=== PATIENT | male | born 1965 | race Caucasian/White ===

== ENCOUNTER → 2016-12-21 | Outpatient (CLI) | payer BC ==
[~2016-12-21] MED LIST: ASMANEX220 MCG INH; CARDIZEM CD240 MG PO; ECOTRIN81 MG PO; GLUCOPHAGE500 MG PO; HYDROCHLOROTHIA25 MG PO; IBUPROFEN800 MG PO; K-DUR TAB 10 M10 MEQ PO; LATANOPROST2.5 ML OP; LIORESAL TAB 1010 MG PO; LOPRESSOR100 MG PO; MIRTAZAPINE45 MG PO; OMEPRAZOLE20 MG PO; PRAVASTATIN SOD40 MG PO; ZESTRIL20 MG PO
[2016-12-21 13:04] LABS: BUN/CREATININE RATIO 13 (0-10)
== END ==
LOC: LAB 12:03
PROVIDERS: Family Medicine
DX: E11.9 Type 2 diabetes mellitus without complications (principal); E78.2 Mixed hyperlipidemia
CPT/HCPCS: 36415; 80053; 80061; 83036; 84443

== ENCOUNTER 2017-03-19 23:59 | Emergency (ER) | payer BC ==
[2017-03-20 02:21] LABS: HEMOGLOBIN 15.1 gm/dl (14.0-17.5); RED BLOOD COUNT 5.15 M/UL (4.20-5.50); WHITE BLOOD COUNT 11.3 K/UL (4.5-11.0)
[2017-03-20 02:43] LABS: BUN/CREATININE RATIO 16 (0-10)
== END 2017-03-20 06:28 | disposition home or self-care (01) ==
LOC: ER1 23:59
PROVIDERS: Student in an Organized Health Care Education/Training Program
DX: R07.9 Chest pain, unspecified (principal); R20.2 Paresthesia of skin; E11.9 Type 2 diabetes mellitus without complications; I10 Essential (primary) hypertension; E78.5 Hyperlipidemia, unspecified; F17.210 Nicotine dependence, cigarettes, uncomplicated; Z88.5 Allergy status to narcotic agent; Z90.49 Acquired absence of other specified parts of digestive tract; Z79.82 Long term (current) use of aspirin; Z79.899 Other long term (current) drug therapy; Z79.84 Long term (current) use of oral hypoglycemic drugs
CPT/HCPCS: 36415; 70450; 71020; 80053; 82550; 82553; 83874; 84484; 85025; 93005; 99285

== ENCOUNTER 2021-04-10 15:22 | Inpatient (IN) | payer OTHER ==
[~2021-04-10] VITALS: Ht 180.3 cm; Wt 206.4 kg
[~2021-04-10 15:22] MED LIST changes: +ACID CONTROL150 MG PO; +ADMELOG100 UNIT/1 SC; +AFRIN15 ML; +ALLERGY RELIEF10 M1 PO; +ANTIVERT 25MG T25 MG PO; +ASPIRIN CHEWABL81 MG PO; +ASPIRIN EC81 MG PO; +AZELASTINE137 MCG/0.; +BACLOFEN20 MG PO; +BASAGLAR K100 UNIT/1 SC; +BASAGLAR K100 UNIT/1 SQ; +BENADRYL 25MG C25 MG PO; +BENADRYL25 MG PO; +CHANTIX1 MG PO; +EUTHYROX25 MCG PO; +FERROUS GLUCON324 M2 PO; +FISH OIL 1,0001 EACH PO; +GLUCOPHAGE XR500 MG PO; -GLUCOPHAGE500 MG PO; +GLUCOTROL 10 MG10 MG PO; +IBU800 MG PO; +IPRAT-ALBUT 0.5-3 ML INH; +LASIX20 MG PO; +LEVEMIR FL100 UNIT/1 SC; +LEVOCETIRIZINE D5 MG PO; -LIORESAL TAB 1010 MG PO; +LISINOPRIL10 MG PO; +LOPRESSOR 25 MG25 MG PO; +LOVAZA1 GM PO; +MAGNESIUM400 M2 PO; +MAGOX 400400 MG PO; +MEN'S ONE DAIL1 EACH PO; +METOPROLOL TART50 MG PO; +MIRAPEX0.25 MG PO; +MUCUS RELIEF400 MG PO; +NEURONTIN800 MG PO; -OMEPRAZOLE20 MG PO; +OMEPRAZOLE40 MG PO; +POTASSIUM GLUCO99 MG PO; +POTASSIUM99 M1 PO; -PRAVASTATIN SOD40 MG PO; +PREDNISONE 20 M20 MG PO; +PREDNISONE 50 M50 MG PO; +PREDNISONE50 MG PO; +SYMBICORT 80-41 INHA INH; +TRAZODONE HCL150 MG PO; +TRAZODONE HCL50 MG PO; +TRELEGY ELLIPT1 EACH INH; +ULTRAM50 MG PO; +VENTOLIN HFA 66.7 GM INH; +VIBRAMYCIN100 MG PO; -ZESTRIL20 MG PO; +[UNRECOGNIZED DRUG - OTHER] PO
[2021-04-10 16:31] LABS: RED BLOOD COUNT 4.63 M/UL (4.20-5.50); WHITE BLOOD COUNT 11.7 K/UL (4.5-11.0)
[2021-04-10 17:00] LABS: BUN/CREATININE RATIO 9 (0-10)
[2021-04-11 04:18] LABS: RED BLOOD COUNT 4.34 M/UL (4.20-5.50); WHITE BLOOD COUNT 11.5 K/UL (4.5-11.0)
[2021-04-11] MEDS ORDERED: LASIX40 MG PO (11:30)
[2021-04-11] MEDS ORDERED: REQUIP3 MG PO (11:31)
[2021-04-11] MEDS ORDERED: TYLENOL EXTRA500 MG PO (11:31)
[2021-04-11] MEDS ORDERED: MOTRIN IB200 MG PO (11:32)
[2021-04-11] MEDS ORDERED: MELATONIN10 M2 PO (11:32)
[2021-04-11] MEDS ORDERED: POTASSIUM CHLO10 MEQ PO (11:33)
[2021-04-11] MEDS ORDERED: PROTONIX40 MG PO (11:33)
[2021-04-11] MEDS ORDERED: HUMULIN R500 UNIT/1 SC ×2 (11:35→11:37)
[2021-04-11] MEDS ORDERED: TRAZODONE HCL150 MG PO (11:37)
[2021-04-11] MEDS ORDERED: ACID REDUCER200 MG PO (11:39)
[2021-04-11] MEDS ORDERED: LIPITOR80 MG PO (11:45)
[2021-04-11] MEDS ORDERED: TRULICITY3 MG/0.5 M SQ (12:58)
[2021-04-11] MEDS ORDERED: NEURONTIN800 MG PO (16:31)
[2021-04-12 05:57] LABS: HEMOGLOBIN 14.3 gm/dl (14.0-17.5); RED BLOOD COUNT 4.41 M/UL (4.20-5.50); WHITE BLOOD COUNT 9.2 K/UL (4.5-11.0)
[2021-04-12 06:20] LABS: BUN/CREATININE RATIO 11 (0-10)
[2021-04-13 03:46] LABS: BUN/CREATININE RATIO 11 (0-10)
[2021-04-14 04:17] LABS: HEMOGLOBIN 12.7 gm/dl (14.0-17.5); RED BLOOD COUNT 4.01 M/UL (4.20-5.50); WHITE BLOOD COUNT 5.7 K/UL (4.5-11.0)
[2021-04-14 04:50] LABS: BUN/CREATININE RATIO 12 (0-10)
[2021-04-15 02:45] LABS: HEMOGLOBIN 13.7 gm/dl (14.0-17.5); RED BLOOD COUNT 3.96 M/UL (4.20-5.50); WHITE BLOOD COUNT 6.6 K/UL (4.5-11.0)
[2021-04-15 03:13] LABS: BUN/CREATININE RATIO 12 (0-10)
--- NOTE | 2021-04-16 01:49 | NUR ---
APPROX. 0030: PT'S ABG WAS REPEATED. ABG RESULTS WERE CRITICAL. SEE RESULTS FOR DETAILS. GERI (RESPIRATORY THERAPIST) NOTIFIED OF ABG RESULTS. ORDERED FOR HER TO INCREASE HIS RATE TO 22 AND DO A REPEAT ABG IN 2 HOURS. PT'S BIPAP RATE WAS INCREASED TO 22. FIO2 WAS CONTINUED AT 45%. PT IS NOT DISPLAYING ANY S/S OF DISTRESS. WILL CONTINUE TO MONITOR.
--- NOTE | 2021-04-16 04:07 | NUR ---
APPROX. 0250: ABG WAS REPEATED. ABG RESULTS WERE CRITICAL. SEE RESULTS FOR DETAILS. GERI (RESPIRATORY THERAPIST) NOTIFIED OF ABG RESULTS. ORDERED TO INCREASE PT'S PRESSURE TO IPAP: 22, EPAP: 8 AND TO REPEAT THE ABG AT 0800. PT'S BIPAP WAS INCREASED TO IPAP: 22, EPAP: 8. FIO2 WAS CONTINUED AT 45%. PT IS NOT DISPLAYING ANY S/S OF DISTRESS. WILL CONTINUE TO MONITOR.
--- NOTE | 2021-04-16 07:49 | NUR ---
RECIEVED CALL FROM TELEMETRY NOTIFYING THIS NURSE THAT PATIENT'S OXYGEN LEVEL WAS 74%. RESPONDED TO PATIENT'S ROOM TO FIND HIM IN THE RESTROOM, ALERT AND VERBAL. NONCOMPLIANT WITH NWB STATUS TO BLE. INSTRUCTED PATIENT TO RETURN TO BED AND REAPPLY OXYGEN, WELL NECESSITY FOR NWB STATUS. PATIENT REFUSES TO COMPLY WITH PHYSICIAN'S ORDER. AT BEDSIDE.
[2021-04-17 05:17] LABS: HEMOGLOBIN 12.9 gm/dl (14.0-17.5); RED BLOOD COUNT 4.27 M/UL (4.20-5.50); WHITE BLOOD COUNT 8.2 K/UL (4.5-11.0)
[2021-04-17 05:33] LABS: BUN/CREATININE RATIO 14 (0-10)
[2021-04-19 03:24] LABS: BUN/CREATININE RATIO 14 (0-10)
--- NOTE | 2021-04-19 16:58 | NUR ---
PATIENTS BLOOD GLUCOSE 416. DR. ROBB NOTIFIED. NEW ORDERS: 15 UNITS HUMALOG ONCE
[2021-04-20 03:50] LABS: BUN/CREATININE RATIO 17 (0-10)
--- NOTE | 2021-04-20 15:59 | NUR ---
PT'S POTASSIUM WAS 3.3 THIS MORNING. PT WAS SUPPLEMENTED WITH 40mEq AND DR. ROBB STATED THAT HIS LEVEL CAN BE RECHECKED IN THE MORNING. WILL CONTINUE TO MONITOR FOR CHANGES.
[2021-04-22 06:14] LABS: HEMOGLOBIN 13.1 gm/dl (14.0-17.5); RED BLOOD COUNT 4.12 M/UL (4.20-5.50); WHITE BLOOD COUNT 6.5 K/UL (4.5-11.0)
[2021-04-22 06:35] LABS: BUN/CREATININE RATIO 14 (0-10)
[2021-04-23 04:22] LABS: HEMOGLOBIN 13.1 gm/dl (14.0-17.5); RED BLOOD COUNT 4.14 M/UL (4.20-5.50); WHITE BLOOD COUNT 6.3 K/UL (4.5-11.0)
[2021-04-23 04:46] LABS: BUN/CREATININE RATIO 15 (0-10)
--- NOTE | 2021-04-23 12:13 | NUR ---
PATIENT REQUESTED WALKING BOOTS CASE MANAGEMENT INSTRUCTED ME TO CALL DR. WALKER FOR THE ORDER, I HAVE CALLED HIS OFFICE SINCE HE IS NOT [employer] TODAY AND ALL THE ORTHO DOCTORS ARE OUT OF THE OFFICE TODAY THE NURSE STATED SHE WOULD CALL TOMORROW AFTER SHE ASKED DR. WALKER IF HE WANTED THE BOOTS ORDERED, CASE MANAGEMENT HAS BEEN NOTIFIED.
[2021-04-24 05:26] LABS: BUN/CREATININE RATIO 16 (0-10)
[2021-04-24] MEDS ORDERED: SENNA LAX8.6 MG PO (15:00)
[2021-04-24] MEDS ORDERED: NOVOLOG MI100 UNIT/1 SC (15:00)
[2021-04-24] MEDS ORDERED: ACETAZOLAMIDE250 MG PO (15:00)
[2021-04-24] MEDS ORDERED: GLUCOPHAGE 850850 MG PO (15:16)
== END 2021-04-24 17:27 | disposition home health service (06) | DRG 871 ==
LOC: ER1 15:22 → CDU 17:42 → MED SURG 4 17:42 → CDU 04-17 15:16 → MED SURG 4 04-17 15:16
PROVIDERS: Emergency Medicine; Internal Medicine; Internal Medicine Infectious Disease; Physician Assistant Medical; ADMIT Internal Medicine
PROC: B24BZZ4 Ultrasonography of Heart with Aorta, Transesophageal (ICD-10-PCS; principal; 2021-04-10)
PROC: 5A09457 Assistance with Respiratory Ventilation, 24-96 Consecutive Hours, Continuous Positive Airway Pressure (ICD-10-PCS; 2021-04-11)
DX: A41.9 Sepsis, unspecified organism (principal); J96.21 Acute and chronic respiratory failure with hypoxia; J96.22 Acute and chronic respiratory failure with hypercapnia; E66.2 Morbid (severe) obesity with alveolar hypoventilation; N30.00 Acute cystitis without hematuria; J98.11 Atelectasis; N17.9 Acute kidney failure, unspecified; E87.3 Alkalosis; Z68.41 Body mass index [BMI] 40.0-44.9, adult; Z20.822 Contact with and (suspected) exposure to COVID-19; W18.30XA Fall on same level, unspecified, initial encounter; E11.65 Type 2 diabetes mellitus with hyperglycemia; S82.851A Displaced trimalleolar fracture of right lower leg, initial encounter for closed fracture; E87.6 Hypokalemia; J44.9 Chronic obstructive pulmonary disease, unspecified; E86.1 Hypovolemia; G89.29 Other chronic pain; E78.5 Hyperlipidemia, unspecified; I10 Essential (primary) hypertension; T50.1X5A Adverse effect of loop [high-ceiling] diuretics, initial encounter; F17.210 Nicotine dependence, cigarettes, uncomplicated; Z88.6 Allergy status to analgesic agent; Z85.3 Personal history of malignant neoplasm of breast; Z85.46 Personal history of malignant neoplasm of prostate; Z85.89 Personal history of malignant neoplasm of other organs and systems; Z90.49 Acquired absence of other specified parts of digestive tract; Z79.82 Long term (current) use of aspirin; Z79.01 Long term (current) use of anticoagulants
CPT/HCPCS: ECHO; 0240U; 36415; 36600; 70450; 71045; 72125; 73610; 73700; 80048; 80053; 80202; 81001; 82550; 82553; 82803; 82962; 83605; 83690; 83735; 83874; 83880; 84132; 84443; 84484; 85025; 85027; 85610; 85730; 86140; 87040; 87081; 87086; 93005; 93306; 94640; 94660; 94664; 94760; 96374; 99285; G0378; J0696; J1120; J1335; J1650; J1940; J2185; J2270; J3370; J7030; J7070; Q9957; U0002

== ENCOUNTER 2021-08-18 13:59 | Inpatient (IN) | payer OTHER ==
[~2021-08-18] VITALS: Ht 180.3 cm; Wt 204.1 kg
[~2021-08-18 13:59] MED LIST changes: +ACETAZOLAMIDE250 MG PO; +ACID REDUCER200 MG PO; +GLUCOPHAGE 850850 MG PO; +HUMULIN R500 UNIT/1 SC; +LASIX40 MG PO; +LIPITOR80 MG PO; +MELATONIN10 M2 PO; +MOTRIN IB200 MG PO; +NOVOLOG MI100 UNIT/1 SC; +POTASSIUM CHLO10 MEQ PO; +PROTONIX40 MG PO; +REQUIP3 MG PO; +SENNA LAX8.6 MG PO; +TRULICITY3 MG/0.5 M SQ; +TYLENOL EXTRA500 MG PO
[2021-08-18 16:35] LABS: HEMOGLOBIN 16.3 gm/dl (14.0-17.5); RED BLOOD COUNT 5.02 M/UL (4.20-5.50); WHITE BLOOD COUNT 11.8 K/UL (4.5-11.0)
[2021-08-18 16:54] LABS: BUN/CREATININE RATIO 10 (0-10)
[2021-08-18] MEDS ORDERED: TRELEGY ELLIPT1 EACH INH ×2 (22:07→22:36)
[2021-08-18] MEDS ORDERED: GLIPIZIDE10 MG PO (22:09)
[2021-08-18] MEDS ORDERED: HUMULIN R U (22:10)
[2021-08-18] MEDS ORDERED: CIMETIDINE200 MG PO (22:10)
[2021-08-18] MEDS ORDERED: LORATADINE10 MG PO (22:12)
[2021-08-18] MEDS ORDERED: ROPINIROLE HCL3 MG PO (22:13)
[2021-08-18] MEDS ORDERED: LEVOCETIRIZINE D5 MG PO (22:15)
[2021-08-18] MEDS ORDERED: FLONASE 0.05% N16 GM (22:17)
[2021-08-18] MEDS ORDERED: FAMOTIDINE40 MG PO (22:31)
[2021-08-18] MEDS ORDERED: FUROSEMIDE20 MG PO (22:32)
[2021-08-18] MEDS ORDERED: EUTHYROX25 MCG PO (22:34)
[2021-08-18] MEDS ORDERED: ACCU-CHEK1 EAC1 MC (22:35)
[2021-08-18] MEDS ORDERED: MUCINEX600 MG PO (22:37)
[2021-08-18] MEDS ORDERED: MAXIMUM DAILY1 EAC1 PO (22:38)
[2021-08-19 07:36] LABS: HEMOGLOBIN 14.5 gm/dl (14.0-17.5); RED BLOOD COUNT 4.73 M/UL (4.20-5.50)
[2021-08-19 07:40] LABS: WHITE BLOOD COUNT 7.8 K/UL (4.5-11.0)
[2021-08-19 09:09] LABS: BUN/CREATININE RATIO 10 (0-10)
[2021-08-20 03:21] LABS: HEMOGLOBIN 14.7 gm/dl (14.0-17.5); RED BLOOD COUNT 4.67 M/UL (4.20-5.50); WHITE BLOOD COUNT 6.9 K/UL (4.5-11.0)
[2021-08-20 03:49] LABS: BUN/CREATININE RATIO 10 (0-10)
[2021-08-20] MEDS ORDERED: HYDROCODON-ACE1 EAC4 PO (17:05)
[2021-08-20] MEDS ORDERED: ENOXAPARIN40 MG/0.4 SC (17:05)
[2021-08-20] MEDS ORDERED: MODAFINIL100 MG PO (17:05)
[2021-08-20] MEDS ORDERED: ACETAZOLAMIDE250 MG PO (17:05)
[2021-08-21 17:08] LABS: ORGANISM ID Not indicated. (.); SPECIMEN SOURCE Urine (.); STREPTOCOCCUS PNEUMONIAE AG Negative (Negative)
[2021-08-22 09:14] LABS: AMPHETAMINES, URINE Negative ng/mL (Cutoff=1000); BARBITURATE Negative ng/mL (Cutoff=200); BENZODIAZEPINES Negative ng/mL (Cutoff=200); CANNABINOIDS Negative ng/mL (Cutoff=20); COCAINE (METABOLITE) Negative ng/mL (Cutoff=300); CREATININE 70.6 mg/dL (20.0-300.0); MEPERIDINE Negative ng/mL (Cutoff=200); METHADONE Negative ng/mL (Cutoff=300); OPIATES Negative ng/mL (Cutoff=300); PHENCYCLIDINE Negative ng/mL (Cutoff=25); PROPOXYPHENE Negative ng/mL (Cutoff=300)
== END 2021-08-20 18:17 | disposition home health service (06) | DRG 91 ==
LOC: ER1 13:59 → CCU 18:17 → CDU 18:17 → CCU 19:47 → PROG CARE 08-19 11:02
PROVIDERS: Internal Medicine; Physician Assistant; ADMIT Internal Medicine
PROC: 5A09457 Assistance with Respiratory Ventilation, 24-96 Consecutive Hours, Continuous Positive Airway Pressure (ICD-10-PCS; principal; 2021-08-18)
DX: G92.8 Other toxic encephalopathy (principal); J96.21 Acute and chronic respiratory failure with hypoxia; J96.22 Acute and chronic respiratory failure with hypercapnia; N17.9 Acute kidney failure, unspecified; E87.3 Alkalosis; E66.2 Morbid (severe) obesity with alveolar hypoventilation; E11.649 Type 2 diabetes mellitus with hypoglycemia without coma; J44.9 Chronic obstructive pulmonary disease, unspecified; I12.9 Hypertensive chronic kidney disease with stage 1 through stage 4 chronic kidney disease, or unspecified chronic kidney disease; N18.30 Chronic kidney disease, stage 3 unspecified; S82.51XA Displaced fracture of medial malleolus of right tibia, initial encounter for closed fracture; Z96.651 Presence of right artificial knee joint; F17.210 Nicotine dependence, cigarettes, uncomplicated; I27.81 Cor pulmonale (chronic); G47.00 Insomnia, unspecified; E03.9 Hypothyroidism, unspecified; G89.29 Other chronic pain; T40.605A Adverse effect of unspecified narcotics, initial encounter; E87.6 Hypokalemia; G25.81 Restless legs syndrome; E11.22 Type 2 diabetes mellitus with diabetic chronic kidney disease; E78.5 Hyperlipidemia, unspecified; Z90.49 Acquired absence of other specified parts of digestive tract; Z98.890 Other specified postprocedural states; Z90.89 Acquired absence of other organs; Z88.5 Allergy status to narcotic agent; Z80.3 Family history of malignant neoplasm of breast; Z85.46 Personal history of malignant neoplasm of prostate
CPT/HCPCS: 36415; 36600; 71045; 73610; 73630; 80053; 80307; 82140; 82150; 82550; 82553; 82607; 82803; 82962; 83036; 83540; 83550; 83605; 83735; 83874; 83880; 84100; 84439; 84443; 84484; 85025; 85027; 85652; 86140; 87040; 87086; 87278; 87899; 93005; 94640; 94660; 94760; 99285; G0480; J1650; J2185; J2310; J3370; J7030; J7050; J7060; U0002

== ENCOUNTER 2021-08-30 15:20 | Inpatient (IN) | payer OTHER ==
[~2021-08-30] VITALS: Ht 180.3 cm; Wt 181.4 kg
[~2021-08-30 15:20] MED LIST changes: +ACCU-CHEK1 EAC1 MC; +CIMETIDINE200 MG PO; +ENOXAPARIN40 MG/0.4 SC; +FAMOTIDINE40 MG PO; +FLONASE 0.05% N16 GM; +FUROSEMIDE40 MG PO; +GLIPIZIDE10 MG PO; +HUMULIN R U SQ; +HYDROCODON-ACE1 EAC4 PO; +LORATADINE10 MG PO; +MAXIMUM DAILY1 EAC1 PO; +MODAFINIL100 MG PO; +MUCINEX600 MG PO; +PROAIR HFA8.5 GM INH; +ROPINIROLE HCL3 MG PO
[2021-08-30 16:47] LABS: HEMOGLOBIN 16.3 gm/dl (14.0-17.5); RED BLOOD COUNT 5.06 M/UL (4.20-5.50); WHITE BLOOD COUNT 5.8 K/UL (4.5-11.0)
[2021-08-30 17:08] LABS: BUN/CREATININE RATIO 10 (0-10)
[2021-08-31 06:52] LABS: HEMOGLOBIN 15.3 gm/dl (14.0-17.5); RED BLOOD COUNT 4.88 M/UL (4.20-5.50); WHITE BLOOD COUNT 4.5 K/UL (4.5-11.0)
[2021-08-31 07:40] LABS: BUN/CREATININE RATIO 9 (0-10)
[2021-08-31] MEDS ORDERED: SENNA LAXATIVE8.6 MG PO (14:24)
[2021-09-01 02:28] LABS: HEMOGLOBIN 15.1 gm/dl (14.0-17.5); RED BLOOD COUNT 4.74 M/UL (4.20-5.50)
[2021-09-01 02:58] LABS: BUN/CREATININE RATIO 17 (0-10)
[2021-09-02 02:44] LABS: HEMOGLOBIN 15.5 gm/dl (14.0-17.5); RED BLOOD COUNT 4.93 M/UL (4.20-5.50)
[2021-09-02 02:46] LABS: WHITE BLOOD COUNT 5.8 K/UL (4.5-11.0)
[2021-09-02 03:12] LABS: BUN/CREATININE RATIO 26 (0-10)
[2021-09-04 08:56] LABS: HEMOGLOBIN 16.7 gm/dl (14.0-17.5); RED BLOOD COUNT 5.32 M/UL (4.20-5.50); WHITE BLOOD COUNT 5.5 K/UL (4.5-11.0)
[2021-09-04 09:16] LABS: BUN/CREATININE RATIO 32 (0-10)
[2021-09-06 11:48] LABS: HEMOGLOBIN 15.9 gm/dl (14.0-17.5); RED BLOOD COUNT 5.02 M/UL (4.20-5.50); WHITE BLOOD COUNT 6.3 K/UL (4.5-11.0)
[2021-09-06 12:12] LABS: BUN/CREATININE RATIO 30 (0-10)
[2021-09-07 09:07] LABS: HEMOGLOBIN 15.9 gm/dl (14.0-17.5); RED BLOOD COUNT 5.21 M/UL (4.20-5.50); WHITE BLOOD COUNT 6.9 K/UL (4.5-11.0)
[2021-09-07 09:21] LABS: BUN/CREATININE RATIO 32 (0-10)
[2021-09-08 09:08] LABS: HEMOGLOBIN 16.8 gm/dl (14.0-17.5); RED BLOOD COUNT 5.25 M/UL (4.20-5.50); WHITE BLOOD COUNT 5.8 K/UL (4.5-11.0)
[2021-09-08 09:20] LABS: BUN/CREATININE RATIO 31 (0-10)
[2021-09-08] MEDS ORDERED: DOXYCYCLINE HY100 M2 PO (13:45)
[2021-09-08] MEDS ORDERED: LANTUS INS100 UTS/M1 SC (13:45)
[2021-09-08] MEDS ORDERED: NOVOLOG FL100 UNIT/1 SC (13:45)
[2021-09-08] MEDS ORDERED: DEXAMETHASONE2 MG PO (13:57)
[2021-09-08] MEDS ORDERED: ELIQUIS 2.5 MG2.5 MG PO (13:57)
== END 2021-09-08 19:20 | disposition home health service (06) | DRG 177 ==
LOC: ER1 15:20 → MED SURG 4 18:32 → CDU 18:32 → PROG CARE 18:32 → MED SURG 4 09-03 23:50 → ZOBSOF 09-08 14:45 → MED SURG 4 09-08 14:45
PROVIDERS: Internal Medicine; Nurse Practitioner; ADMIT Internal Medicine
PROC: 5A09457 Assistance with Respiratory Ventilation, 24-96 Consecutive Hours, Continuous Positive Airway Pressure (ICD-10-PCS; principal; 2021-08-30)
PROC: 3E0333Z Introduction of Anti-inflammatory into Peripheral Vein, Percutaneous Approach (ICD-10-PCS; 2021-08-30)
PROC: XW033E5 Introduction of Remdesivir Anti-infective into Peripheral Vein, Percutaneous Approach, New Technology Group 5 (ICD-10-PCS; 2021-08-30)
DX: U07.1 COVID-19 (principal); J96.21 Acute and chronic respiratory failure with hypoxia; J96.22 Acute and chronic respiratory failure with hypercapnia; J12.82 Pneumonia due to coronavirus disease 2019; G92.8 Other toxic encephalopathy; J44.0 Chronic obstructive pulmonary disease with (acute) lower respiratory infection; E66.2 Morbid (severe) obesity with alveolar hypoventilation; E87.3 Alkalosis; Z68.43 Body mass index [BMI] 50.0-59.9, adult; W01.0XXA Fall on same level from slipping, tripping and stumbling without subsequent striking against object, initial encounter; G47.33 Obstructive sleep apnea (adult) (pediatric); E11.22 Type 2 diabetes mellitus with diabetic chronic kidney disease; N18.30 Chronic kidney disease, stage 3 unspecified; E11.43 Type 2 diabetes mellitus with diabetic autonomic (poly)neuropathy; I12.9 Hypertensive chronic kidney disease with stage 1 through stage 4 chronic kidney disease, or unspecified chronic kidney disease; D69.6 Thrombocytopenia, unspecified; S82.891A Other fracture of right lower leg, initial encounter for closed fracture; E03.9 Hypothyroidism, unspecified; R55 Syncope and collapse; Z83.1 Family history of other infectious and parasitic diseases; Z98.890 Other specified postprocedural states; Z88.8 Allergy status to other drugs, medicaments and biological substances; Z88.6 Allergy status to analgesic agent; Z79.4 Long term (current) use of insulin; Z79.84 Long term (current) use of oral hypoglycemic drugs; Z79.82 Long term (current) use of aspirin
CPT/HCPCS: ECHO; 36415; 36600; 70450; 71045; 72020; 80048; 80053; 81001; 82140; 82550; 82553; 82728; 82803; 82962; 83605; 83690; 83735; 83874; 83880; 84439; 84443; 84484; 85025; 85027; 85379; 85610; 85730; 86140; 87040; 87086; 93005; 93306; 93970; 94640; 94660; 94664; 94760; 96365; 96375; 97116; 97162; 97166; 97530; 99285; J0456; J0696; J1100; J1120; J1335; J1650; J1940; J2310; J2405; J7030; Q9957; U0002

== ENCOUNTER 2021-10-01 20:45 | Emergency (ER) | payer OTHER ==
[~2021-10-01 20:45] MED LIST changes: +DEXAMETHASONE2 MG PO; +DOXYCYCLINE HY100 M2 PO; +ELIQUIS 2.5 MG2.5 MG PO; +LANTUS INS100 UTS/M1 SC; +NOVOLOG FL100 UNIT/1 SC; +SENNA LAXATIVE8.6 MG PO
[2021-10-01 23:28] LABS: HEMOGLOBIN 13.4 gm/dl (14.0-17.5); RED BLOOD COUNT 4.25 M/UL (4.20-5.50); WHITE BLOOD COUNT 4.7 K/UL (4.5-11.0)
[2021-10-02] MEDS ORDERED: CEPHALEXIN500 MG PO (03:01)
[2021-10-02] MEDS ORDERED: BACTRIM 400-801 EACH PO (03:01)
== END 2021-10-02 03:00 | disposition home or self-care (01) ==
LOC: ER1 20:45
PROVIDERS: Family Medicine
DX: E11.649 Type 2 diabetes mellitus with hypoglycemia without coma (principal); E66.01 Morbid (severe) obesity due to excess calories; Z79.4 Long term (current) use of insulin; I10 Essential (primary) hypertension; J44.9 Chronic obstructive pulmonary disease, unspecified; Z79.01 Long term (current) use of anticoagulants; Z87.891 Personal history of nicotine dependence
CPT/HCPCS: 36415; 73590; 73630; 80053; 82962; 83605; 85025; 86140; 96374; 99284

== ENCOUNTER 2021-12-21 15:42 | Inpatient (IN) | payer OTHER ==
[~2021-12-21] VITALS: Ht 180.3 cm; Wt 220.9 kg
[~2021-12-21 15:42] MED LIST changes: +BACTRIM 400-801 EACH PO; +BACTRIM DS TAB1 EACH PO; +CEPHALEXIN500 M1 PO; +CEPHALEXIN500 MG PO; -HUMULIN R U SQ; +K-TAB ER20 MEQ PO; -MELATONIN10 M2 PO
[2021-12-21 16:54] LABS: RED BLOOD COUNT 4.56 M/UL (4.20-5.50); WHITE BLOOD COUNT 8.8 K/UL (4.5-11.0)
[2021-12-21 17:19] LABS: BUN/CREATININE RATIO 8 (0-10)
[2021-12-22 03:05] LABS: HEMOGLOBIN 14.2 gm/dl (14.0-17.5); RED BLOOD COUNT 4.64 M/UL (4.20-5.50); WHITE BLOOD COUNT 9.1 K/UL (4.5-11.0)
[2021-12-22 03:47] LABS: BUN/CREATININE RATIO 8 (0-10)
[2021-12-22] MEDS ORDERED: MELATONIN10 M2 PO (11:32)
[2021-12-22] MEDS ORDERED: TRAZODONE HCL150 MG PO (11:37)
[2021-12-22] MEDS ORDERED: CEPHALEXIN500 MG PO (12:59)
[2021-12-22] MEDS ORDERED: FISH OIL 1,0001 EACH PO (13:07)
[2021-12-22] MEDS ORDERED: TYLENOL325 MG PO (13:09)
[2021-12-22] MEDS ORDERED: MOTRIN IB200 MG PO (13:10)
[2021-12-22] MEDS ORDERED: GUAIFENESIN400 MG PO (13:11)
[2021-12-22] MEDS ORDERED: DOCUSATE SODIU100 MG PO (13:13)
[2021-12-22] MEDS ORDERED: HUMULIN R U-500 SQ ×3 (13:18→22:10)
[2021-12-22] MEDS ORDERED: NICOTINE PATCH1 EACH TD (13:19)
[2021-12-22] MEDS ORDERED: BACLOFEN20 MG PO (13:20)
[2021-12-22] MEDS ORDERED: CIMETIDINE200 MG PO (13:22)
[2021-12-22] MEDS ORDERED: MIRALAX 119 GR119 GM PO (13:24)
[2021-12-22] MEDS ORDERED: ACETAZOLAMIDE250 MG PO (13:25)
[2021-12-22] MEDS ORDERED: LEVOCETIRIZINE D5 MG PO (13:26)
[2021-12-22] MEDS ORDERED: LORATADINE10 MG PO (13:27)
[2021-12-23 02:08] LABS: RED BLOOD COUNT 4.3 M/UL (4.20-5.50); WHITE BLOOD COUNT 7.8 K/UL (4.5-11.0)
[2021-12-23 02:28] LABS: BUN/CREATININE RATIO 11 (0-10)
--- NOTE | 2021-12-23 03:09 | NUR ---
PT CALLED OUT FOR PAIN MEDICATION AGAIN. UPON ENTERING THE ROOM HE IS ASLEEP AND DIDN'T EVEN KNOW I WAS IN THERE. I WOKE HIM UP TO GIVE PAIN MEDICATION. HE STATES, " CAN I HAVE THAT LIQUID DILAUDID INSTEAD? THOSE PILLS DONT HELP MY PAIN." EDUCATED PT ABOUT MEDICATION ORALLY IS TO BE GIVEN FIRST THEN DILAUDID FOR SEVERE BREAKTHRU PAIN PER THE MD ORDERS. ALSO TEACHING DONE ABOUT MEDICATION NEEDS AND USAGE.
[2021-12-24 06:28] LABS: HEMOGLOBIN 14.8 gm/dl (14.0-17.5)
[2021-12-24 06:36] LABS: RED BLOOD COUNT 4.74 M/UL (4.20-5.50)
[2021-12-24 07:11] LABS: BUN/CREATININE RATIO 14 (0-10)
== END 2021-12-24 13:28 | disposition home health service (06) | DRG 193 ==
LOC: ER1 15:42 → MED SURG 4 18:32 → PROG CARE 18:32 → CDU 18:32 → PROG CARE 19:36 → MED SURG 4 12-23 15:49
PROVIDERS: Emergency Medicine; Internal Medicine; ADMIT Internal Medicine
PROC: 5A09357 Assistance with Respiratory Ventilation, Less than 24 Consecutive Hours, Continuous Positive Airway Pressure (ICD-10-PCS; 2021-12-21)
PROC: B24BZZZ Ultrasonography of Heart with Aorta (ICD-10-PCS; principal; 2021-12-22)
PROC: 5A09357 Assistance with Respiratory Ventilation, Less than 24 Consecutive Hours, Continuous Positive Airway Pressure (ICD-10-PCS; 2021-12-23)
DX: J18.9 Pneumonia, unspecified organism (principal); J96.21 Acute and chronic respiratory failure with hypoxia; J96.22 Acute and chronic respiratory failure with hypercapnia; J44.0 Chronic obstructive pulmonary disease with (acute) lower respiratory infection; Z20.822 Contact with and (suspected) exposure to COVID-19; E66.2 Morbid (severe) obesity with alveolar hypoventilation; I13.0 Hypertensive heart and chronic kidney disease with heart failure and stage 1 through stage 4 chronic kidney disease, or unspecified chronic kidney disease; G93.49 Other encephalopathy; Z68.44 Body mass index [BMI] 60.0-69.9, adult; F17.210 Nicotine dependence, cigarettes, uncomplicated; E11.22 Type 2 diabetes mellitus with diabetic chronic kidney disease; E11.42 Type 2 diabetes mellitus with diabetic polyneuropathy; N18.9 Chronic kidney disease, unspecified; I50.9 Heart failure, unspecified; E03.9 Hypothyroidism, unspecified; Z79.01 Long term (current) use of anticoagulants; Z79.82 Long term (current) use of aspirin; Z99.81 Dependence on supplemental oxygen; Z79.4 Long term (current) use of insulin; Z98.890 Other specified postprocedural states; Z88.6 Allergy status to analgesic agent; Z88.5 Allergy status to narcotic agent; Z88.8 Allergy status to other drugs, medicaments and biological substances; Z90.49 Acquired absence of other specified parts of digestive tract; Z71.6 Tobacco abuse counseling
CPT/HCPCS: ECHO; 36415; 36600; 71045; 80053; 81001; 82550; 82553; 82803; 82962; 83036; 83540; 83550; 83605; 83735; 83880; 84100; 84484; 85025; 85027; 85652; 86140; 87040; 87086; 87205; 87278; 93005; 93306; 94640; 94660; 94664; 94760; 96374; 96375; 97110; 97162; 97166; 99285; J0360; J0456; J0696; J1650; J2185; Q9957; U0002

== ENCOUNTER 2022-02-02 09:42 | Inpatient (IN) | payer OTHER ==
[~2022-02-02] VITALS: Ht 180.3 cm; Wt 215.5 kg
[~2022-02-02 09:42] MED LIST changes: +DOCUSATE SODIU100 MG PO; +GUAIFENESIN400 MG PO; +HUMULIN R U-500 SQ; +MELATONIN10 M2 PO; +MIRALAX 119 GR119 GM PO; +NICOTINE PATCH1 EACH TD; +POTASSIUM CHLO10 ME1 PO; -POTASSIUM CHLO10 MEQ PO; +TYLENOL325 MG PO
[2022-02-02 10:57] LABS: HEMOGLOBIN 14.3 gm/dl (14.0-17.5); RED BLOOD COUNT 4.71 M/UL (4.20-5.50); WHITE BLOOD COUNT 7.3 K/UL (4.5-11.0)
[2022-02-02 11:35] LABS: BUN/CREATININE RATIO 11 (0-10)
[2022-02-02] MEDS ORDERED: FERROUS GLUCON324 M1 PO (15:25)
[2022-02-02] MEDS ORDERED: LORATADINE10 MG PO (15:35)
[2022-02-02] MEDS ORDERED: ATORVASTATIN CA80 MG PO (15:35)
[2022-02-02] MEDS ORDERED: CIMETIDINE200 MG PO (15:35)
[2022-02-02] MEDS ORDERED: FUROSEMIDE40 MG PO (15:36)
[2022-02-02] MEDS ORDERED: MUCUS RELIEF D1 EAC1 PO (15:37)
[2022-02-02] MEDS ORDERED: IBU-200200 MG PO (15:37)
[2022-02-03 05:12] LABS: HEMOGLOBIN 14.2 gm/dl (14.0-17.5); RED BLOOD COUNT 4.75 M/UL (4.20-5.50)
[2022-02-03 05:47] LABS: BUN/CREATININE RATIO 14 (0-10)
[2022-02-04 05:14] LABS: HEMOGLOBIN 15.1 gm/dl (14.0-17.5); RED BLOOD COUNT 5.06 M/UL (4.20-5.50); WHITE BLOOD COUNT 6.1 K/UL (4.5-11.0)
[2022-02-04 05:40] LABS: BUN/CREATININE RATIO 21 (0-10)
[2022-02-05 05:40] LABS: RED BLOOD COUNT 5.32 M/UL (4.20-5.50); WHITE BLOOD COUNT 7.1 K/UL (4.5-11.0)
[2022-02-05 07:01] LABS: BUN/CREATININE RATIO 26 (0-10)
[2022-02-06 01:45] LABS: HEMOGLOBIN 14.2 gm/dl (14.0-17.5); RED BLOOD COUNT 4.8 M/UL (4.20-5.50); WHITE BLOOD COUNT 6.3 K/UL (4.5-11.0)
[2022-02-06 02:13] LABS: BUN/CREATININE RATIO 30 (0-10)
[2022-02-07 03:00] LABS: BUN/CREATININE RATIO 30 (0-10)
[2022-02-08 02:18] LABS: BUN/CREATININE RATIO 30 (0-10)
[2022-02-10 01:49] LABS: HEMOGLOBIN 14.6 gm/dl (14.0-17.5); RED BLOOD COUNT 4.92 M/UL (4.20-5.50); WHITE BLOOD COUNT 7.7 K/UL (4.5-11.0)
[2022-02-10 02:21] LABS: BUN/CREATININE RATIO 28 (0-10)
[2022-02-11 02:25] LABS: BUN/CREATININE RATIO 27 (0-10)
[2022-02-11] MEDS ORDERED: MEDROL DOSEPAK 24 MG PO (10:34)
== END 2022-02-11 14:42 | disposition home or self-care (01) | DRG 291 ==
LOC: ER1 09:42 → CCU 12:05 → CDU 12:05 → PROG CARE 12:05 → CCU 14:53 → PROG CARE 02-05 19:16
PROVIDERS: Emergency Medicine; Internal Medicine; Physician Assistant Medical; ADMIT Internal Medicine
PROC: 5A09357 Assistance with Respiratory Ventilation, Less than 24 Consecutive Hours, Continuous Positive Airway Pressure (ICD-10-PCS; principal; 2022-02-02)
PROC: 5A09457 Assistance with Respiratory Ventilation, 24-96 Consecutive Hours, Continuous Positive Airway Pressure (ICD-10-PCS; 2022-02-02)
PROC: 5A0935A Assistance with Respiratory Ventilation, Less than 24 Consecutive Hours, High Flow/Velocity Cannula (ICD-10-PCS; 2022-02-04)
PROC: 5A09357 Assistance with Respiratory Ventilation, Less than 24 Consecutive Hours, Continuous Positive Airway Pressure (ICD-10-PCS; 2022-02-05)
PROC: 5A0935A Assistance with Respiratory Ventilation, Less than 24 Consecutive Hours, High Flow/Velocity Cannula (ICD-10-PCS; 2022-02-05)
PROC: 5A09357 Assistance with Respiratory Ventilation, Less than 24 Consecutive Hours, Continuous Positive Airway Pressure (ICD-10-PCS; 2022-02-06)
PROC: 5A0935A Assistance with Respiratory Ventilation, Less than 24 Consecutive Hours, High Flow/Velocity Cannula (ICD-10-PCS; 2022-02-06)
PROC: 5A09357 Assistance with Respiratory Ventilation, Less than 24 Consecutive Hours, Continuous Positive Airway Pressure (ICD-10-PCS; 2022-02-07)
PROC: 5A0935A Assistance with Respiratory Ventilation, Less than 24 Consecutive Hours, High Flow/Velocity Cannula (ICD-10-PCS; 2022-02-07)
PROC: 5A09357 Assistance with Respiratory Ventilation, Less than 24 Consecutive Hours, Continuous Positive Airway Pressure (ICD-10-PCS; 2022-02-08)
PROC: 5A0935A Assistance with Respiratory Ventilation, Less than 24 Consecutive Hours, High Flow/Velocity Cannula (ICD-10-PCS; 2022-02-08)
PROC: 5A09357 Assistance with Respiratory Ventilation, Less than 24 Consecutive Hours, Continuous Positive Airway Pressure (ICD-10-PCS; 2022-02-09)
PROC: 5A0935A Assistance with Respiratory Ventilation, Less than 24 Consecutive Hours, High Flow/Velocity Cannula (ICD-10-PCS; 2022-02-09)
PROC: 5A09357 Assistance with Respiratory Ventilation, Less than 24 Consecutive Hours, Continuous Positive Airway Pressure (ICD-10-PCS; 2022-02-10)
PROC: 5A0935A Assistance with Respiratory Ventilation, Less than 24 Consecutive Hours, High Flow/Velocity Cannula (ICD-10-PCS; 2022-02-10)
DX: I13.0 Hypertensive heart and chronic kidney disease with heart failure and stage 1 through stage 4 chronic kidney disease, or unspecified chronic kidney disease (principal); J96.21 Acute and chronic respiratory failure with hypoxia; G93.41 Metabolic encephalopathy; I50.33 Acute on chronic diastolic (congestive) heart failure; J96.22 Acute and chronic respiratory failure with hypercapnia; J44.1 Chronic obstructive pulmonary disease with (acute) exacerbation; E66.2 Morbid (severe) obesity with alveolar hypoventilation; Z68.44 Body mass index [BMI] 60.0-69.9, adult; E11.22 Type 2 diabetes mellitus with diabetic chronic kidney disease; N18.9 Chronic kidney disease, unspecified; F17.200 Nicotine dependence, unspecified, uncomplicated; E78.5 Hyperlipidemia, unspecified; I25.10 Atherosclerotic heart disease of native coronary artery without angina pectoris; F17.210 Nicotine dependence, cigarettes, uncomplicated; Z86.16 Personal history of COVID-19; Z90.49 Acquired absence of other specified parts of digestive tract; Z98.890 Other specified postprocedural states; Z99.81 Dependence on supplemental oxygen; Z88.6 Allergy status to analgesic agent; Z79.899 Other long term (current) drug therapy; Z80.42 Family history of malignant neoplasm of prostate; Z79.01 Long term (current) use of anticoagulants; Z88.8 Allergy status to other drugs, medicaments and biological substances; Z79.4 Long term (current) use of insulin
CPT/HCPCS: 0240U; 36415; 36600; 71045; 80048; 80053; 82550; 82553; 82803; 82962; 83605; 83735; 83880; 84484; 85025; 85027; 87040; 93005; 93308; 94640; 94660; 94664; 94760; 96374; 96375; 97110; 97110-GP-CQ; 97116; 97162; 97166; 97530; 97530-GP-CQ; 99285; J0360; J0696; J1120; J1650; J1940; J2185; J2920; J2930; J3475